=== PATIENT | female | born 1940 ===

== ENCOUNTER 2018-04-03 08:30 | Outpatient (CLI) | payer MEDICARE ==
[2018-04-03] MEDS ORDERED: ISOVUE-370 76%-LOCM 1 ML ONE (14:20)
== END 2018-04-03 08:31 | disposition home or self-care (01) ==
LOC: BICCT 08:30
PROVIDERS: ATTEND Otolaryngology Plastic Surgery within the Head & Neck
DX: E21.0 Primary hyperparathyroidism (principal); D35.1 Benign neoplasm of parathyroid gland
CPT/HCPCS: 70492; 82565

== ENCOUNTER 2018-05-27 15:32 | Outpatient (CLI) | payer MEDICARE ==
--- NOTE | 2018-05-27 17:43 | ULT ---
THYROID ULTRASOUND: 05/27/18 HISTORY: Right thyroid lobectomy performed 1.5 weeks ago. Hyperparathyroidism and right thyroid mass removal. TECHNIQUE: Multiplanar hunter scale and color doppler images were obtained in a thyroid ultrasound. FINDINGS: The right lobe of the thyroid has been removed. The left lobe is homogeneous in appearance without fo arianne nodules or cysts and measures 2.2 cm in length. IMPRESSION: Residual left thyroid lobe. POS: [facility]
== END 2018-05-27 15:33 | disposition home or self-care (01) ==
LOC: BICULT 15:32
PROVIDERS: ATTEND Otolaryngology Plastic Surgery within the Head & Neck
DX: C73 Malignant neoplasm of thyroid gland (principal)
CPT/HCPCS: 76536

== ENCOUNTER 2019-06-24 08:29 | Outpatient (CLI) | payer MEDICARE ==
--- NOTE | 2019-06-24 10:47 | CT ---
CT NECK WITH AND WITHOUT CONTRAST: (PARATHYROID PROTOCOL) DATE: 06/24/19 HISTORY: 79-year-old female with hyperparathyroidism and hypercalcemia. TECHNIQUE: IV contrast: 100 mL [id number]. Precontrast scan, 25 second postcontrast scan, and 65 second postcontrast scan, were obtained from 5. 5 cm inferior to the my to the inferior edge of the orbits. Coronal and sagittal reconstructions obtained. FINDINGS: Right lobe of thyroid gland is absent. There is a 0.5 x 1 x 1 cm intermediate density piece of tissue in the right thyroid bed at the right tracheoesophageal groove, which has no intrinsic iodine. Howev er, it does not enhance, and therefore is not consistent with a parathyroid adenoma. There is a residual left thyroid lobe. At the C7-T1 level, a distance of approximately 0.5 - 1 cm pos terior to the posterior edge of the mid pole of the left lobe of the thyroid gland, there is an appro ximately 1 x 0.5 x 0.5 cm piece of tissue broadly abutting the left side of the upper esophagus, with no intrinsic iodine, and moderately strong enhancement that is a very good candidate for a parathyro id adenoma (axial images 58 of 127, series 2; 39 of 85, series 3; 39 of 85, series 7; coronal images 60 of 109, series 5; 60 of 105, series 9; sagittal images 28 of 75, series 10; 28 of 78, series 6). Very tortuous right internal carotid with retropharyngeal course. 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 Severe degenerative disc disease at C6-7. IMPRESSION: 1. Left paraesophageal lesion is a very good candidate for parathyroid adenoma at the level of the c ervicothoracic junction. 2. Status post right thyroid lobectomy. 3. Nonenhancing piece of tissue in the contralateral right tracheoesophageal groove should not be co nfused for parathyroid adenoma. It may represent scar tissue. 4. High grade cervical spondylosis at C6-7. POS: [facility]
== END 2019-06-24 08:30 | disposition home or self-care (01) ==
LOC: BICCT 08:29
PROVIDERS: ATTEND Otolaryngology Plastic Surgery within the Head & Neck
DX: E21.0 Primary hyperparathyroidism (principal); M47.812 Spondylosis without myelopathy or radiculopathy, cervical region; E89.0 Postprocedural hypothyroidism
CPT/HCPCS: 70492; 82565